=== PATIENT | female | born 1980 | race Two or more races ===

== ENCOUNTER 2016-06-12 15:38 | Emergency (ER) | payer OTHER ==
[~2016-06-12] VITALS: Ht 170.2 cm; Wt 81.6 kg
[2016-06-12 17:34] VITALS: BP 126/83
== END 2016-06-12 18:00 | disposition home or self-care (01) ==
LOC: ER 15:50
DX: R53.1 Weakness (principal); T46.1X5A Adverse effect of calcium-channel blockers, initial encounter; I10 Essential (primary) hypertension; J45.909 Unspecified asthma, uncomplicated; Z88.6 Allergy status to analgesic agent; Y92.89 Other specified places as the place of occurrence of the external cause